=== PATIENT | male | born 1955 | race African-American/Black ===

== ENCOUNTER 2021-03-12 20:14 | Inpatient (IN) | payer OTHER, SELFPAY ==
--- NOTE | ~2021-03-12 | CT_ITS ---
EXAMINATION: CTA chest PE protocol DATE: 03/13/2021 02:21 INDICATION: Shortness of breath, chest pain, cough, fever TECHNIQUE: Computed tomography angiography (CTA) of the chest was performed with 100 mL Omnipaque-350 intravenous contrast timed to evaluate the pulmonary arteries. Coronal maximum intensity projection 3D-reconstructions were created by the technologist. Automated exposure control and iterative reconst ruction technique were employed. Exam dose: 983.16 mGy-cm total exam DLP. COMPARISON: 03/12/2021 AP and lateral chest FINDINGS: There is diagnostic contrast enhancement of the pulmonary arteries and no evidence of centr al pulmonary embolism. Evaluation of peripheral pulmonary arteries is limited by motion. Thoracic aortic aneurysm, ascending aorta measuring up to 4.7 cm approximate diameter aortic arch hesham suring up to 3.5 cm, descending thoracic aorta approximately 3.2 cm. Cardiomegaly. No pericardial effusion. No pleural effusion. Patchy groundglass infiltrates are scattered in the right upper lobe, lingula, middle lobe and partic ularly both lower lobes, likely due to Covid pneumonia. Mild hilar and mediastinal lymph node prominence, likely reactive. Normal adrenal glands. 1.6 cm upper pole probable right renal cyst. No suspicious osteolytic or osteoblastic lesions. IMPRESSION: Extensive patchy bilateral groundglass pulmonary infiltrates, likely due to Covid pneumo marianne No central pulmonary embolism is evident; peripheral pulmonary arteries are not well demonstrated due to motion Cardiomegaly Reviewed, dictated and finalized at [facility] Reviewed, dictated and finalized at [facility]. IMPRESSION: Extensive patchy bilateral groundglass pulmonary infiltrates, like ly due to Covid pneumonia No central pulmonary embolism is evident; peripheral pulmonary arteries are not well demonstrated due to motion Cardiomegaly
--- NOTE | ~2021-03-12 | XR_ITS ---
EXAMINATION: XR chest 2V DATE: 03/12/2021 21:09 INDICATION: Shortness of breath and cough TECHNIQUE: frontal and lateral views of the chest were obtained. COMPARISON: None FINDINGS: Opacities in the bilateral mid and lower lung zones. No pleural effusion or pneumothorax. Borderline heart size accounting for AP technique. Mild to moderate thoracic spondylosis. IMPRESSION: 1. Opacities in the bilateral mid and lower lung zones which could represent pneumonia or pulmonary e wendy. 2. Borderline heart size. Reviewed, dictated and finalized at [facility]. IMPRESSION: 1. Opacities in the bilateral mid and lower lung zones which could represent pn eumonia or pulmonary edema. 2. Borderline heart size.
--- NOTE | 2021-03-12 20:19 | ECG_ITS ---
Measurements Intervals [place] Rate: 68 P: -27 VA: 168 QRS: -32 QRSD: 104 T: -17 QT: 402 QTc: 428 Interpretive Statements SINUS RHYTHM LEFT AXIS DEVIATION INCOMPLETE RIGHT BUNDLE BRANCH BLOCK BORDERLINE T WAVE ABNORMALITY- ANTEROLAT/INF LEADS BASELINE ARTIFACT- I, II, III, AVR, AVL, V1, V3-V6 BORDERLINE ECG Electronically Signed On 03-13-2021 5:48:56 CDT by Allan Vincent D.O.
[2021-03-12 20:50] VITALS: BP 129/79; PULSE 69; RESP 14; TEMP 38.4; O2SAT 91
[2021-03-12 21:55] VITALS: BP 148/77; PULSE 69; RESP 24; TEMP 38.3; O2SAT 92
[2021-03-12 22:51] LABS: Basophils Percent Auto 0.3 % (0.2-1.2); Eosinophils Percent Auto 0.1 % (0-4.4); Hematocrit 36.5 % (42.0-52.0); Hemoglobin 12.1 g/dL (14.0-18.0); Immature Granulocyte Absolute 0.07 K/mm3 (0.00-0.031); Immature Granulocyte Percent A 0.9 % (0-0.5); Lymphocytes Absolute Auto 1.63 K/mm3 (0.9-3.2); Lymphocytes Percent Auto 21.7 % (18.3-44.2); Mean Corpuscular HGB Conc 33.2 g/dl (32-36); Mean Corpuscular Hemoglobin 28.5 pg (26-34); Mean Corpuscular Volume 86.1 fl (80-100); Mean Platelet Volume 9.7 fl (7.4-10.4); Monocytes Absolute Auto 0.7 K/mm3 (0.1-0.6); Monocytes Percent Auto 9.3 % (2.6-8.5); Neutrophils Absolute Auto 5.1 K/mm3 (1.3-6.7); Neutrophils Percent Auto 67.7 % (45.5-73.1); Nucleated Red Blood Cells Perc 0.3 % (0.0-0.2); Platelet Count Result 351 k/mm3 (150-375); Red Blood Count 4.24 M/mm3 (4.6-6.20); White Blood Count 7.5 K/mm3 (4.5-10.0)
[2021-03-12 23:00] LABS: Prothrombin Time 13.5 Seconds (11.1-14.7)
[2021-03-12 23:01] LABS: Partial Thromboplastin Time 30.3 SECONDS (22.3-36.8)
[2021-03-12 23:03] LABS: D Dimer 1.64 ug/mL (<0.48)
[2021-03-12 23:07] LABS: Anion Gap 8 mmol/L (8-16); Blood Urea Nitrogen 12 mg/dL (9-20); Calcium 9.2 mg/dL (8.4-10.2); Carbon Dioxide 27 mmol/L (22-30); Chloride 102 mmol/L (98-107); Estimated CRCL calculation 100 ml/min; Estimated Glomerular Filt Rate > 60; Glucose 104 mg/dL (65-110); Potassium 3.5 mmol/L (3.4-5.0); Sodium 137 mmol/L (137-145)
[2021-03-12 23:08] VITALS: BP 142/79; PULSE 71; RESP 36; O2SAT 95
[2021-03-12 23:09] LABS: Alanine Aminotransferase 70 U/L (4-50); Albumin Level 3.8 g/dL (3.5-5.1); Alkaline Phosphatase 42 U/L (38-126); Aspartate Amino Transferase 64 U/L (17-59); CRP 6.9 mg/dL (<1.0); Lactate Dehydrogenase 857 U/L (313-618)
--- NOTE | 2021-03-12 23:51 | ED.SOB ---
HPI - SOB/Dyspnea General Chief Complaint: Shortness of Breath/Dyspnea Stated Complaint: pneumonia- want chest xray Time Seen by Provider: 03/12/21 23:15 Source: patient and RN notes reviewed Mode of arrival: ambulatory Limitations: no limitations History of Present Illness HPI Narrative: This is a 65 year old male who presents for evaluation of possible pneumonia. He presented with his with symptoms of cough, weakness and shortness of breath. He states he has had symptoms for 1 week. He has shortness of breath with minimal exertion. His cough is nonproductive. He denies chest pain, nausea, vomiting, abdominal pain or diarrhea. He also reports mild headache. He had fever of 101.1 F in triage. Related Data Home Medications Medication Instructions Recorded Confirmed latanoprost 0.005 % eye drops 1 drop EACH EYE DAILY 04/29/20 03/13/21 timolol maleate 0.5 % once daily 1 drop EACH EYE DAILY ml 04/29/20 03/13/21 eye drops Allergies Allergy/AdvReac Type Severity Reaction Status Date / Time No Known Allergies Allergy Verified 03/12/21 22:00 Review of Systems Review of Systems: All systems reviewed & are unremarkable except as noted in HPI and below PMFSH Past Medical History Medical History (Updated 03/13/21 @ 07:42 by Shikha Young MD) Elevated PSA Glaucoma Vasectomy planned Surgical History Surgical History (Updated 03/12/21 @ 23:52 by Shikha Young MD) H/O prostatectomy Family History Family History Mother Cancer Father Cancer Social History Social History (Updated 04/29/20 @ 08:42 by Jade Kuo) Smoking status: Never smoker Second hand tobacco smoke exposure: No Alcohol intake: never Substance use: never Gender identity (if verbalized by the patient): Male Spiritual care concerns: No Exam Const: General: alert and ill appearing; No diaphoretic Orientation/consciousness: patient oriented x3 Other: mild distress Eyes: EOM: EOMs intact bilaterally Resp: Effort & Inspection: not labored, no retractions and tachypneic Auscultation: crackles bilateral and no wheezes Cardio: Rate: regular rate Rhythm: regular rhythm Heart sounds: Murmur heart sound present GI: GI Palp: Yes Soft to palpation, No Tenderness to palpation present (GI) and No Guarding due to palpation present (GI) Auscultation: normal bowel sounds Back/Spine/Pelvis: Back: no CVA tenderness Skin: General skin exam: normal color Rashes: no rashes Neuro: General: patient oriented x3, moves all extremities and CN's II-XI intact bilaterally Psych: Mental Status: mental status grossly normal Affect: normal affect Course Reevaluation(s) Reevaluation #1: PAtient presents with suspected covid pneumonia. He has been started on antibiotics. He was placed on 2 L NC due to hypoxia on abg. No respiratory distress. Date: 03/13/21 Time: 02:00 Consultations Consultation #1: I discussed case with Dr. Tan. He accepts patient to medical floor for likely covid pneumonia. No further recommendations Date: 03/13/21 Time: 03:10 Vital Signs Vital signs: Vital Signs Temperature 101.1 F H 03/12/21 20:50 Pulse Rate 69 03/12/21 20:50 Respiratory Rate 14 03/12/21 20:50 Blood Pressure 129/79 03/12/21 20:50 Pulse Oximetry 91 03/12/21 20:50 Temperature 99.2 F 03/13/21 05:30 Pulse Rate 68 03/13/21 05:30 Respiratory Rate 22 H 03/13/21 05:30 Blood Pressure 120/73 03/13/21 05:30 Pulse Oximetry 94 03/13/21 05:34 MDM - SOB/Dyspnea Lab Data Attestation: I reviewed the patient's lab results. Result diagrams: 03/12/21 22:43 03/12/21 22:43 Labs: Lab Results 03/12/21 03/12/21 03/12/21 Range/Units 22:43 22:43 22:43 WBC 7.5 (4.5-10.0) K/mm3 RBC 4.24 L (4.6-6.20) M/mm3 Hgb 12.1 L (14.0-18.0) g/dL Hct 36.5 L (42.0-52.0) % MCV 86.1 (80-100)
[2021-03-12] MEDS: ACETAMINOPHEN 500 MG TABLET 1000 MG PO (23:55)
[2021-03-13] VITALS (11 sets, daily range): BP systolic 118–141; BP diastolic 71–79; PULSE 56–73; RESP 18–32; TEMP 36.5–37.6; O2SAT 92–98; BMI 35.1
[2021-03-13] MEDS: SODIUM CHLORIDE 0.9% IV 1,000 ML 999 ML IV CONT (00:13)
[2021-03-13 00:21] LABS: Base Excess ABG -0.9 mEq/l (+/-2.0); Carboxyhemoglobin 0.7 % THb (0-2.0); Fractional Inspired Oxygen 21 %; HCO3 ABG 21.4 mEq/l (22.0-26.0); Methemoglobin ABG 0.2 %THb (0-1.5); Oxygen Content ABG 15.5 %vol (16.0-22.0); Oxygen Saturation ABG 91.6 % (95.0-100.0); Oxyhemoglobin 87.7 % THb (90.0-100.0); PCO2 ABG 28.7 mmHg (35.0-45.0); PO2 ABG 55.4 mmHg (80.0-100.0); PO2 FiO2 Ratio Arterial Blood 2.64 %; Reduced Hemoglobin 11.4 %THb (0-5.0); Total Hemoglobin 12.6 g/dL (12.0-18.0)
[2021-03-13 00:23] LABS: Modified Allen's Test Pass; Site Drawn RIGHT RADIAL
[2021-03-13] MEDS: DEXAMETHASONE 2 MG TABLET 6 MG PO ×2 (00:50→09:40)
--- NOTE | 2021-03-13 00:50 | PC.NURSE ---
pt placed on 2L of o2 via nasal cannula per respiratory
[2021-03-13] MEDS: ALBUTEROL SULFATE (*SP) AEROSOL 1 PUFF 4 PUFF INHALATION (03:09)
--- NOTE | 2021-03-13 05:35 | ADMGEN ---
This patient, Daquan Green, was admitted to [facility] Surg Room 331-02. Patient/family oriented to hospital policies and general routines including ID bracelet, bed and alarms, visiting hours, pain management, procedures, bathroom and other care routines, personal items, smoking policy, room service/diet, and visiting hours. Information on how to activate the Rapid Response Team has been discussed. Patient/Family are encouraged to report perceived risks to care and to ask questions if they do not understand what they are told or what they should do.
--- NOTE | 2021-03-13 14:21 | PM.IMHP ---
H&P: HPI History of Present Illness Date/Time: 03/13/21 14:21 65-year-old male who denies any past medical history other than glaucoma and prostate ca, states that he is very well and does not see doctors presents to the emergency room with his both with acute hypoxemic respiratory failure requiring admission. Initial laboratory findings revealed normal wbc's elevated inflammatory markers LDH is 857, CRP 6.9, ferritin 795. Renal function is stable creatinine 1.0 BUN 12 electrolytes within normal limits. CT angio of chest reveals extensive patchy bilateral ground-glass pulmonary infiltrates highly suspicious for coronavirus-19. Both Daquan and his declined medical therapy due to risks associated with possible side effects. He is excepting dexamethasone, Azithro, and oxygen therapy only. After ongoing discussion with patient he and his have agreed to accept all medical therapy made available to them here in our hospital. Chief Complaint: SOB Review of Systems Review of Systems: All systems reviewed & are unremarkable except as noted in HPI and below PMFSH Past Medical History Medical History (Updated 03/13/21 @ 19:01 by Jerri Heath MD) Elevated PSA Glaucoma Vasectomy planned Surgical History Surgical History (Updated 03/12/21 @ 23:52 by Shikha Young MD) H/O prostatectomy Family History Family History Mother Cancer Father Cancer Social History Social History (Updated 04/29/20 @ 08:42 by Jade Kuo) Smoking status: Never smoker Second hand tobacco smoke exposure: No Alcohol intake: never Substance use: never Gender identity (if verbalized by the patient): Male Spiritual care concerns: No Meds Home Medications and Allergies Home Medications Medication Instructions Recorded Confirmed Type latanoprost 0.005 % eye drops 1 drop EACH EYE DAILY 04/29/20 03/13/21 History timolol maleate 0.5 % once daily 1 drop EACH EYE DAILY ml 04/29/20 03/13/21 History eye drops Allergies Allergy/AdvReac Type Severity Reaction Status Date / Time No Known Allergies Allergy Verified 03/12/21 22:00 Vital Signs Vital Signs - 24 hr 03/12/21 20:50 03/12/21 21:55 03/12/21 23:08 Temperature 101.1 F H 101 F H Pulse Rate 69 69 71 Respiratory Rate 14 24 H 36 H Blood Pressure 129/79 148/77 H 142/79 H Pulse Oximetry 91 92 95 03/13/21 00:05 03/13/21 00:49 03/13/21 02:59 Temperature Pulse Rate 73 71 67 Respiratory Rate 26 H 28 H 32 H Blood Pressure 138/71 141/77 H 129/79 Pulse Oximetry 92 98 95 03/13/21 03:10 03/13/21 05:28 03/13/21 05:30 Temperature 99.2 F Pulse Rate 66 67 68 Respiratory Rate 20 22 H 22 H Blood Pressure 118/77 120/73 Pulse Oximetry 98 94 03/13/21 05:34 03/13/21 08:00 Temperature Pulse Rate 68 Respiratory Rate 22 H Blood Pressure Pulse Oximetry 94 94 Exam Const: General: comfortable and no acute distress HENMT: General nose exam: Normal nares present Mouth: Yes moist mucous membranes Eyes: General: appearance normal, both eyes and all related structures Sclera: sclerae normal EOM: EOMs intact bilaterally Neck: Neck: supple and no JVD Resp: Auscultation: crackles and diminished lung sounds Cardio: Rate: tachycardic Rhythm: regular rhythm GI: Inspection: non-distended GI Palp: Yes Soft to palpation and No Guarding due to palpation present (GI) Auscultation: normal bowel sounds Skin: General skin exam: normal color and no rashes or lesions noted Neuro: Cognition (Neuro): normal cognition Speech: normal speech Motor exam (neuro): 5/5 motor strength present throughout and Normal motor muscle tone present throughout Extrem: General: normal to inspection, normal exam except as noted and no edema Psych: Mental Status: mental status grossly normal Affect: normal affect H&P: Results Labs Labs: Short CBC 03/12/21 Range/Units 22:43 WBC
[2021-03-13 20:10] LABS: SARS-CoV-2 RNA PCR Positive
[2021-03-13] MEDS: REMDESIVIR 200 MG/NS 250 ML 200 MG/250 ML BAG 250 MG IVPB (22:30)
[2021-03-13] MEDS: ASCORBIC ACID 500 MG TABLET 1000 MG PO (22:33)
[2021-03-14] VITALS (7 sets, daily range): BP systolic 113–140; BP diastolic 67–82; PULSE 56–79; RESP 18–24; TEMP 36.3–37.7; O2SAT 91–96
[2021-03-14] MEDS: LATANOPROST 0.005% OP SOLN 2.5 ML BTL 1 DROP EACH EYE ×2 (00:09→20:48)
[2021-03-14 06:27] LABS: Basophils Percent Auto 0.1 % (0.2-1.2); Hematocrit 37.3 % (42.0-52.0); Hemoglobin 12.4 g/dL (14.0-18.0); Immature Granulocyte Absolute 0.11 K/mm3 (0.00-0.031); Lymphocytes Absolute Auto 1.44 K/mm3 (0.9-3.2); Lymphocytes Percent Auto 13.6 % (18.3-44.2); Mean Corpuscular HGB Conc 33.2 g/dl (32-36); Mean Corpuscular Volume 87.1 fl (80-100); Mean Platelet Volume 10.5 fl (7.4-10.4); Monocytes Absolute Auto 0.8 K/mm3 (0.1-0.6); Monocytes Percent Auto 7.7 % (2.6-8.5); Neutrophils Absolute Auto 8.2 K/mm3 (1.3-6.7); Neutrophils Percent Auto 77.6 % (45.5-73.1); Platelet Count Result 414 k/mm3 (150-375); Red Blood Count 4.28 M/mm3 (4.6-6.20); Red Cell Distribution Width 14.1 % (11.5-14.5); White Blood Count 10.6 K/mm3 (4.5-10.0)
[2021-03-14 06:43] LABS: INR 1.1
[2021-03-14 06:45] LABS: D Dimer 1.93 ug/mL (<0.48)
[2021-03-14] MEDS: CHOLECALCIFEROL 1,000 UNITS TABLET 1000 UNITS PO (09:05)
[2021-03-14] MEDS: ZINC SULFATE 220 MG CAPSULE PO (09:05)
[2021-03-14] MEDS: ENOXAPARIN 40 MG/0.4 ML SYRINGE SUB-Q (09:05)
[2021-03-14] MEDS: ASCORBIC ACID 500 MG TABLET 1000 MG PO ×2 (09:05→20:43)
[2021-03-14] MEDS: TIMOLOL MALEATE 0.5% OP SOLN 5 ML BOTTLE 1 DROP EACH EYE (09:08)
[2021-03-14 09:38] LABS: Alanine Aminotransferase 58 U/L (4-50); Albumin Level 3.3 g/dL (3.5-5.1); Alkaline Phosphatase 38 U/L (38-126); Anion Gap 8 mmol/L (8-16); Aspartate Amino Transferase 40 U/L (17-59); Bilirubin,Total 0.5 mg/dL (0.2-1.3); Blood Urea Nitrogen 12 mg/dL (9-20); CRP 5.7 mg/dL (<1.0); Calcium 9.2 mg/dL (8.4-10.2); Carbon Dioxide 25 mmol/L (22-30); Chloride 108 mmol/L (98-107); Estimated CRCL calculation 120 ml/min; Estimated Glomerular Filt Rate > 60; Glucose 115 mg/dL (65-110); Magnesium 2.1 mg/dL (1.6-2.3); Potassium 4.5 mmol/L (3.4-5.0); Sodium 141 mmol/L (137-145)
[2021-03-14 09:47] LABS: Hemoglobin A1C 6.6 % (<5.7)
--- NOTE | 2021-03-14 11:51 | PM.IMPN ---
Progress Note: A&P Assessment and Plan (1) COVID-19 determined by clinical diagnostic criteria: Code(s): U07.1 - COVID-19 Status: Acute Assessment and Plan: trend inflammatory markers PPI while on steroids supplemental O2 dexamethasone Azithromycin Remdesivir VTEP LMWH and SCDs (2) Low vitamin D level: Code(s): R79.89 - Other specified abnormal findings of blood chemistry Status: Acute Assessment and Plan: Vit D / Vti C / Zn (3) Hyperglycemia: Code(s): R73.9 - Hyperglycemia, unspecified Status: Acute Assessment and Plan: hgA1c in am Additional Plan VTEP PT/OT 03/13/21 admitted for covid, protocol therapies initiated 03/14/21 cont on benign course, 2L NC, tolerating medical therapy, diet, PT/OT ordered. OOB to chair as desired Subjective Date/time seen: 03/14/21 11:51 Patient doing okay this afternoon remains on 2-3 L of nasal cannula minimal cough tolerating p.o. feels that he is beginning to improve Exam Narrative: GEN: NAD, AAOx3, cooperative HEENT: NCAT, MMM, EOMI Neck: no JVD Heart: S1S2 RRR Lungs: no use of accessory muscles reduced air movement Abd: soft, NT, ND, bowel sounds normoactive Ext: moves all, no cyanosis, no clubbing, no edema Neuro: AAOx3 CN intact no focal motor deficits Psych: mood and affect congruent Objective Data Vital Signs Vital Signs: Vital Signs - 24 hr 03/13/21 14:00 03/13/21 20:00 03/13/21 20:45 Temperature 97.7 F 99.7 F H Pulse Rate 68 70 56 L Respiratory Rate 18 20 18 Blood Pressure 140/76 133/78 Pulse Oximetry 96 93 92 03/14/21 00:00 03/14/21 03:50 03/14/21 08:26 Temperature 98.7 F 98.1 F 97.5 F L Pulse Rate 67 56 L 63 Respiratory Rate 20 18 24 H Blood Pressure 139/82 128/77 113/77 Pulse Oximetry 94 92 96 Intake/Output Intake/Output: Intake & Output 03/11/21 03/12/21 03/13/21 03/14/21 23:59 23:59 23:59 23:59 Intake Total 1660 900 Output Total 600 Balance 1660 300 Meds/Results Medications: Active Medications Generic Name Dose Route Start Last Admin Trade Name Freq PRN Reason Stop Dose Admin Albuterol 4 puff 03/12/21 23:43 03/13/21 03:09 Albuterol Sulfate (*Sp) Aerosol 1 Puff INHALATION 4 puff Q6HRT PRN Administration Shortness Of Breath Ascorbic Acid 1,000 mg 03/13/21 21:00 03/14/21 09:05 Ascorbic Acid 500 Mg Tablet PO 1,000 mg Q12HR JANNETTE Administration Dexamethasone 6 mg 03/13/21 08:00 03/13/21 09:40 Dexamethasone 2 Mg Tablet PO 03/22/21 08:01 6 mg DAILY@0800 JANNETTE Administration Enoxaparin Sodium 40 mg 03/14/21 09:00 03/14/21 09:05 Enoxaparin 40 Mg/0.4 Ml Syringe SUB-Q 40 mg DAILY JANNETTE Administration Ceftriaxone Sodium/Dextrose 1 gm in 50 mls @ 100 mls/hr 03/14/21 02:00 03/14/21 02:34 Rocephin 1 Gm/D5w 50 Ml IVPB 100 mls/hr Q24H JANNETTE Administration Azithromycin 500 mg in 250 mls @ 250 mls/hr 03/14/21 02:30 03/14/21 03:26 Zithromax IVPB 250 mls/hr Q24H JANNETTE Administration Remdesivir 100 mg in 250 mls @ 250 mls/hr 03/14/21 22:00 IVPB 03/17/21 22:01 Q24H JANNETTE Latanoprost 1 drop 03/13/21 21:00 03/14/21 00:09 Latanoprost 0.005% Op Soln 2.5 Ml Btl EACH EYE 1 drop HS JANNETTE Administration Melatonin 3 mg 03/13/21 20:50 Melatonin 3 Mg Tablet PO HS PRN Insomnia Pantoprazole Sodium 40 mg 03/15/21 09:00 Pantoprazole Sodium Iv 40 Mg Vial IV PUSH QAM JANNETTE Timolol Maleate 1 drop 03/14/21 09:00 03/14/21 09:08 Timolol Maleate 0.5% Op Soln 5 Ml Bottle EACH EYE 04/13/21 09:01 1 drop DAILY JANNETTE Administration Vitamin D 1,000 units 03/14/21 09:00 03/14/21 09:05 Cholecalciferol 1,000 Units Tablet PO 1,000 units DAILY JANNETTE Administration Zinc Sulfate 220 mg 03/14/21 09:00 03/14/21 09:05 Zinc Sulfate 220 Mg Capsule PO 220 mg QAM JANNETTE Administration Radiology Results: ITS Impressions Chest X-Ray 03/12/21 21:18 IMPRESSION: 1.
[2021-03-14] MEDS: DEXAMETHASONE 2 MG TABLET 6 MG PO (16:18)
[2021-03-14] MEDS: REMDESIVIR 100 MG/NS 250 ML 100 MG/250 ML BAG 250 MG IVPB (20:44)
[2021-03-15] VITALS: BP 118/72; PULSE 65; RESP 18; TEMP 36.6; O2SAT 91
[2021-03-15 04:00] VITALS: BP 127/78; PULSE 64; RESP 20; TEMP 37.3; O2SAT 95
[2021-03-15 08:00] VITALS: BP 126/72; PULSE 60; RESP 18; TEMP 37.2; O2SAT 92
[2021-03-15 08:29] LABS: Alanine Aminotransferase 48 U/L (4-50); Estimated CRCL calculation 120 ml/min; Estimated Glomerular Filt Rate > 60
[2021-03-15] MEDS: ZINC SULFATE 220 MG CAPSULE PO (08:41)
[2021-03-15] MEDS: DEXAMETHASONE 2 MG TABLET 6 MG PO (08:41)
[2021-03-15] MEDS: CHOLECALCIFEROL 1,000 UNITS TABLET 1000 UNITS PO (08:41)
[2021-03-15] MEDS: ASCORBIC ACID 500 MG TABLET 1000 MG PO ×2 (08:41→21:28)
[2021-03-15] MEDS: TIMOLOL MALEATE 0.5% OP SOLN 5 ML BOTTLE 1 DROP EACH EYE (08:42)
[2021-03-15] MEDS: PANTOPRAZOLE SODIUM IV 40 MG VIAL IV PUSH (08:42)
[2021-03-15] MEDS: ENOXAPARIN 40 MG/0.4 ML SYRINGE SUB-Q (08:42)
[2021-03-15 08:56] LABS: INR 1.1; Prothrombin Time 13.7 Seconds (11.1-14.7)
--- NOTE | 2021-03-15 10:09 | PM.IMPN ---
Progress Note: A&P Assessment and Plan (1) COVID-19 determined by clinical diagnostic criteria: Code(s): U07.1 - COVID-19 Status: Acute Assessment and Plan: trend inflammatory markers PPI while on steroids supplemental O2 dexamethasone Azithromycin Remdesivir VTEP LMWH and SCDs (2) Low vitamin D level: Code(s): R79.89 - Other specified abnormal findings of blood chemistry Status: Acute Assessment and Plan: Vit D / Vti C / Zn (3) Hyperglycemia: Code(s): R73.9 - Hyperglycemia, unspecified Status: Acute Assessment and Plan: hgA1c in am Additional Plan VTEP PT/OT 03/13/21 admitted for covid, protocol therapies initiated 03/14/21 cont on benign course, 2L NC, tolerating medical therapy, diet, PT/OT ordered. OOB to chair as desired 03/15/21 now on RA and able to maintain sats at 92-94 w ambulation, elevated temp overnight, receiving Remdesivir 3/5 and Dexamethasone. (Inflammatory markers appear to be uptrending. Will monitor closely for decompensation . Subjective Date/time seen: 03/15/21 10:09 pt doing very well on RA now no complaints Exam Narrative: GEN: NAD, AAOx3, cooperative HEENT: NCAT, MMM, EOMI Neck: no JVD Heart: S1S2 RRR Lungs: no use of accessory muscles reduced air movement Abd: soft, NT, ND, bowel sounds normoactive Ext: moves all, no cyanosis, no clubbing, no edema Neuro: AAOx3 CN intact no focal motor deficits Psych: mood and affect congruent Objective Data Vital Signs Vital Signs: Vital Signs - 24 hr 03/14/21 12:00 03/14/21 16:00 03/14/21 20:00 Temperature 97.3 F L 99.7 F H 100 F H Pulse Rate 61 79 65 Respiratory Rate 20 18 18 Blood Pressure 138/79 128/79 140/67 Pulse Oximetry 96 92 91 03/15/21 00:00 03/15/21 04:00 03/15/21 08:00 Temperature 98 F 99.1 F 98.9 F Pulse Rate 65 64 60 Respiratory Rate 18 20 18 Blood Pressure 118/72 127/78 126/72 Pulse Oximetry 91 95 92 Intake/Output Intake/Output: Intake & Output 03/12/21 03/13/21 03/14/21 03/15/21 23:59 23:59 23:59 23:59 Intake Total 1660 2720 600 Output Total 600 600 Balance 1660 2120 0 Meds/Results Medications: Active Medications Generic Name Dose Route Start Last Admin Trade Name Freq PRN Reason Stop Dose Admin Albuterol 4 puff 03/12/21 23:43 03/13/21 03:09 Albuterol Sulfate (*Sp) Aerosol 1 Puff INHALATION 4 puff Q6HRT PRN Administration Shortness Of Breath Ascorbic Acid 1,000 mg 03/13/21 21:00 03/15/21 08:41 Ascorbic Acid 500 Mg Tablet PO 1,000 mg Q12HR JANNETTE Administration Dexamethasone 6 mg 03/14/21 15:35 03/15/21 08:41 Dexamethasone 2 Mg Tablet PO 03/22/21 08:01 6 mg DAILY@0800 JANNETTE Administration Enoxaparin Sodium 40 mg 03/14/21 09:00 03/15/21 08:42 Enoxaparin 40 Mg/0.4 Ml Syringe SUB-Q 40 mg DAILY JANNETTE Administration Ceftriaxone Sodium/Dextrose 1 gm in 50 mls @ 100 mls/hr 03/14/21 02:00 03/15/21 02:35 Rocephin 1 Gm/D5w 50 Ml IVPB Infused Q24H JANNETTE Infusion Azithromycin 500 mg in 250 mls @ 250 mls/hr 03/14/21 02:30 03/15/21 03:05 Zithromax IVPB Infused Q24H JANNETTE Infusion Remdesivir 100 mg in 250 mls @ 250 mls/hr 03/14/21 22:00 03/14/21 21:45 IVPB 03/17/21 22:01 Infused Q24H JANNETTE Infusion Latanoprost 1 drop 03/13/21 21:00 03/14/21 20:48 Latanoprost 0.005% Op Soln 2.5 Ml Btl EACH EYE 1 drop HS JANNETTE Administration Melatonin 3 mg 03/13/21 20:50 Melatonin 3 Mg Tablet PO HS PRN Insomnia Pantoprazole Sodium 40 mg 03/15/21 09:00 03/15/21 08:42 Pantoprazole Sodium Iv 40 Mg Vial IV PUSH 40 mg QAM JANNETTE Administration Timolol Maleate 1 drop 03/14/21 09:00 03/15/21 08:42 Timolol Maleate 0.5% Op Soln 5 Ml Bottle EACH EYE 04/13/21 09:01 1 drop DAILY JANNETTE Administration Vitamin D 1,000 units 03/14/21 09:00 03/15/21 08:41 Cholecalciferol 1,000 Units Tablet PO 1,000 units DAILY JANNETTE Administration Zinc Sulfat
[2021-03-15 10:39] LABS: Basophils Percent Auto 0.2 % (0.2-1.2); Hematocrit 39.6 % (42.0-52.0); Hemoglobin 12.9 g/dL (14.0-18.0); Immature Granulocyte Absolute 0.24 K/mm3 (0.00-0.031); Lymphocytes Absolute Auto 1.63 K/mm3 (0.9-3.2); Lymphocytes Percent Auto 13.8 % (18.3-44.2); Mean Corpuscular HGB Conc 32.6 g/dl (32-36); Mean Corpuscular Hemoglobin 29.1 pg (26-34); Mean Corpuscular Volume 89.4 fl (80-100); Mean Platelet Volume 10.5 fl (7.4-10.4); Monocytes Absolute Auto 0.6 K/mm3 (0.1-0.6); Monocytes Percent Auto 5.4 % (2.6-8.5); Neutrophils Absolute Auto 9.3 K/mm3 (1.3-6.7); Neutrophils Percent Auto 78.6 % (45.5-73.1); Platelet Count Result 503 k/mm3 (150-375); Red Blood Count 4.43 M/mm3 (4.6-6.20); Red Cell Distribution Width 14.1 % (11.5-14.5); White Blood Count 11.8 K/mm3 (4.5-10.0)
[2021-03-15 10:48] LABS: Alanine Aminotransferase 50 U/L (4-50); Albumin Level 3.3 g/dL (3.5-5.1); Alkaline Phosphatase 35 U/L (38-126); Anion Gap 6 mmol/L (8-16); Aspartate Amino Transferase 29 U/L (17-59); Bilirubin,Total 0.5 mg/dL (0.2-1.3); Blood Urea Nitrogen 12 mg/dL (9-20); CRP 3.4 mg/dL (<1.0); Calcium 9.2 mg/dL (8.4-10.2); Carbon Dioxide 25 mmol/L (22-30); Chloride 109 mmol/L (98-107); Estimated CRCL calculation 120 ml/min; Estimated Glomerular Filt Rate > 60; Glucose 104 mg/dL (65-110); Potassium 4.5 mmol/L (3.4-5.0); Sodium 140 mmol/L (137-145)
[2021-03-15 12:00] VITALS: BP 127/81; PULSE 65; RESP 18; TEMP 36.3; O2SAT 93
[2021-03-15 16:00] VITALS: BP 129/75; PULSE 65; RESP 18; TEMP 36.3; O2SAT 93
[2021-03-15 20:00] VITALS: BP 134/72; PULSE 71; RESP 18; TEMP 36.6; O2SAT 98
[2021-03-15] MEDS: LATANOPROST 0.005% OP SOLN 2.5 ML BTL 1 DROP EACH EYE (21:28)
[2021-03-15] MEDS: REMDESIVIR 100 MG/NS 250 ML 100 MG/250 ML BAG 250 MG IVPB (21:28)
[2021-03-16] VITALS (7 sets, daily range): BP systolic 101–134; BP diastolic 63–91; PULSE 52–62; RESP 18–20; TEMP 36.1–37; O2SAT 94–97
[2021-03-16 06:49] LABS: Prothrombin Time 13.3 Seconds (11.1-14.7)
--- NOTE | 2021-03-16 07:40 | PM.IMPN ---
Progress Note: A&P Assessment and Plan (1) COVID-19 determined by clinical diagnostic criteria: Code(s): U07.1 - COVID-19 Status: Acute Assessment and Plan: trend inflammatory markers PPI while on steroids supplemental O2 dexamethasone Azithromycin Remdesivir VTEP LMWH and SCDs (2) Low vitamin D level: Code(s): R79.89 - Other specified abnormal findings of blood chemistry Status: Acute Assessment and Plan: Vit D / Vti C / Zn (3) Hyperglycemia: Code(s): R73.9 - Hyperglycemia, unspecified Status: Acute Assessment and Plan: hgA1c in am (4) Diabetes mellitus: Code(s): E11.9 - Type 2 diabetes mellitus without complications Status: Acute Additional Plan VTEP PT/OT 03/13/21 admitted for covid, protocol therapies initiated 03/14/21 cont on benign course, 2L NC, tolerating medical therapy, diet, PT/OT ordered. OOB to chair as desired 03/15/21 now on RA and able to maintain sats at 92-94 w ambulation, elevated temp overnight, receiving Remdesivir 3/5 and Dexamethasone. (Inflammatory markers appear to be uptrending. Will monitor closely for decompensation . 03/16/21 anticipate discharge tomorrow after last dose of remdesivir. O2 walk test prior to dc We have discussed his new dx of diabetes and lifestyle modifications w close follow up (interestingly no hyperglycemia despite steroids. I will not start treatement and instead have him f/u for repeat testing in 3 months) Subjective Date/time seen: 03/16/21 07:40 doing very well has dramatically improved. He agrees to receive his last dose of Remdesivir tomorrow and then will go home. His remains in ICU. pt advised to quarantine and to cont to wash hands and 6 ft distancing as he and his family could contract COVID-19 again. Exam Narrative: GEN: NAD, AAOx3, cooperative now on RA HEENT: NCAT, MMM, EOMI Neck: no JVD Lungs: no use of accessory muscles reduced air movement Ext: moves all, no cyanosis, no clubbing, no edema Neuro: AAOx3 CN intact no focal motor deficits Psych: mood and affect congruent Objective Data Vital Signs Vital Signs: Vital Signs - 24 hr 03/15/21 08:00 03/15/21 12:00 03/15/21 16:00 Temperature 98.9 F 97.4 F L 97.4 F L Pulse Rate 60 65 65 Respiratory Rate 18 18 18 Blood Pressure 126/72 127/81 129/75 Pulse Oximetry 92 93 93 03/15/21 20:00 03/16/21 00:00 03/16/21 04:00 Temperature 97.8 F 97.9 F 97.3 F L Pulse Rate 71 62 52 L Respiratory Rate 18 18 18 Blood Pressure 134/72 125/74 134/80 Pulse Oximetry 98 94 96 Intake/Output Intake/Output: Intake & Output 03/13/21 03/14/21 03/15/21 03/16/21 23:59 23:59 23:59 23:59 Intake Total 1660 2720 1930 200 Output Total 600 600 Balance 1660 2120 1330 200 Meds/Results Medications: Active Medications Generic Name Dose Route Start Last Admin Trade Name Freq PRN Reason Stop Dose Admin Albuterol 4 puff 03/12/21 23:43 03/13/21 03:09 Albuterol Sulfate (*Sp) Aerosol 1 Puff INHALATION 4 puff Q6HRT PRN Administration Shortness Of Breath Ascorbic Acid 1,000 mg 03/13/21 21:00 03/15/21 21:28 Ascorbic Acid 500 Mg Tablet PO 1,000 mg Q12HR JANNETTE Administration Dexamethasone 6 mg 03/14/21 15:35 03/15/21 08:41 Dexamethasone 2 Mg Tablet PO 03/22/21 08:01 6 mg DAILY@0800 JANNETTE Administration Enoxaparin Sodium 40 mg 03/14/21 09:00 03/15/21 08:42 Enoxaparin 40 Mg/0.4 Ml Syringe SUB-Q 40 mg DAILY JANNETTE Administration Ceftriaxone Sodium/Dextrose 1 gm in 50 mls @ 100 mls/hr 03/14/21 02:00 03/16/21 02:23 Rocephin 1 Gm/D5w 50 Ml IVPB 100 mls/hr Q24H JANNETTE Administration Azithromycin 500 mg in 250 mls @ 250 mls/hr 03/14/21 02:30 03/16/21 02:55 Zithromax IVPB 250 mls/hr Q24H JANNETTE Administration Remdesivir 100 mg in 250 mls @ 250 mls/hr 03/14/21 22:00 03/15/21 22:28 IVPB 03/17/21 22:01 Infused Q24H JANNETTE Infusion Latanoprost 1 drop 03/13/21 21:00
[2021-03-16] MEDS: CHOLECALCIFEROL 1,000 UNITS TABLET 1000 UNITS PO (08:18)
[2021-03-16] MEDS: ASCORBIC ACID 500 MG TABLET 1000 MG PO ×2 (08:18→22:33)
[2021-03-16] MEDS: ENOXAPARIN 40 MG/0.4 ML SYRINGE SUB-Q (08:18)
[2021-03-16] MEDS: ZINC SULFATE 220 MG CAPSULE PO (08:19)
[2021-03-16] MEDS: PANTOPRAZOLE SODIUM IV 40 MG VIAL IV PUSH (08:19)
[2021-03-16] MEDS: TIMOLOL MALEATE 0.5% OP SOLN 5 ML BOTTLE 1 DROP EACH EYE (08:19)
[2021-03-16] MEDS: DEXAMETHASONE 2 MG TABLET 6 MG PO (08:19)
[2021-03-16 08:44] LABS: Alanine Aminotransferase 43 U/L (4-50); Albumin Level 3.3 g/dL (3.5-5.1); Alkaline Phosphatase 32 U/L (38-126); Anion Gap 4 mmol/L (8-16); Aspartate Amino Transferase 27 U/L (17-59); Bilirubin,Total 0.3 mg/dL (0.2-1.3); Blood Urea Nitrogen 10 mg/dL (9-20); Calcium 8.9 mg/dL (8.4-10.2); Carbon Dioxide 24 mmol/L (22-30); Chloride 107 mmol/L (98-107); Estimated CRCL calculation 120 ml/min; Estimated Glomerular Filt Rate > 60; Glucose 107 mg/dL (65-110); Potassium 4.4 mmol/L (3.4-5.0); Sodium 135 mmol/L (137-145)
[2021-03-16 09:11] LABS: CRP 2.3 mg/dL (<1.0)
[2021-03-16] MEDS: REMDESIVIR 100 MG/NS 250 ML 100 MG/250 ML BAG 250 MG IVPB (22:33)
[2021-03-16] MEDS: LATANOPROST 0.005% OP SOLN 2.5 ML BTL 1 DROP EACH EYE (22:33)
[2021-03-17] VITALS (9 sets, daily range): BP systolic 108–138; BP diastolic 79–85; PULSE 51–75; RESP 16–18; TEMP 36.3–37.1; O2SAT 91–98
[2021-03-17 08:22] LABS: Prothrombin Time 13.2 Seconds (11.1-14.7)
[2021-03-17 08:24] LABS: D Dimer 1.34 ug/mL (<0.48)
[2021-03-17] MEDS: ZINC SULFATE 220 MG CAPSULE PO (08:36)
[2021-03-17] MEDS: ASCORBIC ACID 500 MG TABLET 1000 MG PO (08:36)
[2021-03-17] MEDS: CHOLECALCIFEROL 1,000 UNITS TABLET 1000 UNITS PO (08:37)
[2021-03-17] MEDS: DEXAMETHASONE 2 MG TABLET 6 MG PO (08:37)
[2021-03-17] MEDS: ENOXAPARIN 40 MG/0.4 ML SYRINGE SUB-Q (08:38)
[2021-03-17] MEDS: PANTOPRAZOLE SODIUM IV 40 MG VIAL IV PUSH (08:39)
[2021-03-17 08:40] LABS: Alanine Aminotransferase 51 U/L (4-50); Albumin Level 3.3 g/dL (3.5-5.1); Alkaline Phosphatase 33 U/L (38-126); Anion Gap 6 mmol/L (8-16); Aspartate Amino Transferase 31 U/L (17-59); Bilirubin,Total 0.3 mg/dL (0.2-1.3); Blood Urea Nitrogen 14 mg/dL (9-20); Carbon Dioxide 25 mmol/L (22-30); Chloride 106 mmol/L (98-107); Estimated CRCL calculation 108 ml/min; Estimated Glomerular Filt Rate > 60; Glucose 97 mg/dL (65-110); Potassium 4.7 mmol/L (3.4-5.0); Sodium 137 mmol/L (137-145)
[2021-03-17 09:16] LABS: CRP 1.7 mg/dL (<1.0)
[2021-03-17] MEDS: guaiFENesin 12 HR 600 MG TABCR PO (11:39)
--- NOTE | 2021-03-17 11:51 | HOMEO2EVAL ---
Evaluation was performed at [facility] Home Oxygen Evaluation RC: Home Oxygen (O2) Evaluation Start: 03/17/21 09:39 Freq: ONCE Status: Active Protocol: RPE Activity Type Activity Date Activity User E-Sign Co-Sign Detail Recorded Client Recorded Date Recorded By Document 03/17/21 11:35 KRM [id number] 03/17/21 11:51 KRM Document 03/17/21 11:37 KRM [id number] 03/17/21 11:51 KRM Document 03/17/21 11:38 KRM [email or web address] 03/17/21 11:51 KRM Document 03/17/21 11:40 KRM [email or web address] 03/17/21 11:51 KRM 03/17/21 03/17/21 03/17/21 11:35 11:37 11:38 Home O2 Evaluation Test Phase Resting Exercise Exercise Oxygen Delivery Room Air Room Air Room Air Pulse Oximetry (90-100 %) 95 94 94 Pulse Rate (60-100 beats/min) 60 74 74 Activity Tolerance Good Good Ambulation Distance (feet) Treatment Charges O2 Evaluation - Inpatient 03/17/21 11:40 Home O2 Evaluation Test Phase Exercise Oxygen Delivery Room Air Pulse Oximetry (90-100 %) 91 Pulse Rate (60-100 beats/min) 75 Activity Tolerance Good Ambulation Distance (feet) 100 Treatment Charges
--- NOTE | 2021-03-17 15:33 | PM.DS ---
DS: Admitting Diagnosis Admitting Diagnosis COVID-19 pneumonia DS: Discharge Diagnosis Discharge Diagnosis (1) Pneumonia due to COVID-19 virus: Code(s): U07.1 - COVID-19; J12.82 - Pneumonia due to coronavirus disease 2019 Status: Acute Assessment and Plan: Presented with shortness of breath. Tested positive for COVID-19 on 03/13/2021. He required up to 2 L supplemental O2 per nasal cannula. He received 5 days of IV remdesivir and dexamethasone. He was weaned to room air. He will continue with dexamethasone to complete 10 days. Home O2 eval performed with no ongoing supplemental O2 needs. Continue with supportive care. Discussed COVID-19 precautions. Patient is unvaccinated; encouraged him to receive COVID-19 vaccine in 90 days (2) Diabetes mellitus: Code(s): E11.9 - Type 2 diabetes mellitus without complications Status: Acute Assessment and Plan: Noted to have elevated fasting glucose level. A1c elevated at 6.6, consistent with diagnosis of diabetes. He reports he has been informed by his PCP in the past his A1c being elevated. At this time, we will not initiate any treatment and he will follow-up with his PCP for further glucose monitoring. Discussed lifestyle changes including diet and exercise. DS: Summary Hospital Course Hospital Course: Date of admission: 03/12/2021 Date of discharge: 03/17/2021 Daquan Green is a relatively healthy 65-year-old male with no chronic medical conditions who presented to the emergency department on 03/12/2021 with complaints of cough, shortness of breath, and weakness ongoing for 1 week. Upon presentation to the ED, he was febrile with temp 101.1?, additional vital signs stable, H&H slightly decreased, additional CBC and BMP unremarkable, inflammatory markers elevated including LDH, CRP, and slight elevation of AST and ALT. CXR showed a [place] in the bilateral mid and lower lung zones representing pneumonia and CTA showed extensive patchy bilateral ground-glass infiltrates likely related to COVID without evidence of central PE. He was admitted to the hospitalist service for further evaluation and management. Please see above for further details. He was treated for COVID-19 pneumonia with antivirals and steroids. He had significant symptomatic improvement and requested discharge home. Given his overall improvement, he was determined to no longer require inpatient care and was felt to be stable for discharge. We discussed worrisome signs and symptoms for which to return and he was educated on his medications. COVID-19 precautions discussed at length. He was discharged in hemodynamically stable condition on 03/17/2021 and will follow-up with his PCP as an outpatient for further monitoring. Time Spent with Patient Time attestation: Total time spent providing and/or coordinating discharge services: Exam Narrative: Mr. Green is a well-nourished, well-appearing 65-year-old female who is lying supine in bed. He appears comfortable and is in NARD. Neuro: awake, alert and oriented x4, speech clear, no focal neuro deficits noted HEENMT: normocephalic, atraumatic, EOMI, sclerae anicteric, moist oral mucosa Neck: supple, no lymphadenopathy Respiratory: clear to auscultation bilaterally, nonlabored breathing Cardio: regular rate, regular rhythm with S1-S2 Abdomen: nondistended, normoactive bowel sounds, soft, nontender to palpation Extremities: no edema, erythema, or tenderness to palpation Skin: no rashes or lesions, warm and dry Psych: appropriate mood and affect, judgment and insight intact DS: Data Data Completed and Pending Labs on day of discharge: Labs from last 24 hours 03/17/21 03/17/21 03/17/21 06:27 06:27 06:27 PT 13.2 INR 1.0 D-Dimer 1.34 H Sodium 137 Potassium 4.7 Chloride 106 Carbon Dioxide 25 Anion Gap 6 L BUN 14 Creatinine 0.90 Estim Creat Clear Calc 108 Estimated GFR > 60
[2021-03-17] MEDS: REMDESIVIR 100 MG/NS 250 ML 100 MG/250 ML BAG 250 MG IVPB (16:07)
== END 2021-03-17 18:25 | disposition home or self-care (01) | DRG 177 ==
LOC: ANHED 23:43 → ANH3MEDSUR 03-13 05:30
PROVIDERS: Emergency Medicine; Hospitalist; Admitting Provider Internal Medicine; Emergency Provider General Practice; PCP Internal Medicine; Visit Provider Physician Assistant
DX: U07.1 COVID-19 (principal); J12.82 Pneumonia due to coronavirus disease 2019; E11.9 Type 2 diabetes mellitus without complications; H40.9 Unspecified glaucoma; R79.89 Other specified abnormal findings of blood chemistry; Z85.46 Personal history of malignant neoplasm of prostate; Z90.79 Acquired absence of other genital organ(s)
CPT/HCPCS: 36415; 36600; 71046; 71275; 80048; 80053; 80076; 82375; 82565; 82728; 82805; 83036; 83050; 83615; 83735; 84460; 85025; 85380; 85610; 85730; 86140; 93005; 94618; 96365; 96367; 97161; 97165; 99285; A9270; C9113; C9803; J0456; J0696; J1650; J7030; J8540; Q9967; U0003; U0005

== ENCOUNTER 2021-05-24 09:29 | Outpatient (CLI) | payer OTHER, SELFPAY ==
[2021-05-24 10:24] LABS: Hemoglobin A1C 5.7 % (<5.7)
[2021-05-24 10:34] LABS: Anion Gap 7 mmol/L (8-16); Blood Urea Nitrogen 15 mg/dL (9-20); Calcium 9.7 mg/dL (8.4-10.2); Carbon Dioxide 27 mmol/L (22-30); Chloride 106 mmol/L (98-107); Cholesterol 252 mg/dL (0-200); Estimated Glomerular Filt Rate > 60; Glucose 101 mg/dL (65-110); HDL Direct 58 mg/dL; Potassium 3.9 mmol/L (3.4-5.0); Sodium 140 mmol/L (137-145); Triglycerides 103 mg/dL (<150)
[2021-05-24 10:45] LABS: LDL Cholesterol Direct 153 mg/dL
== END 2021-05-24 09:30 | disposition home or self-care (01) ==
LOC: ANHLAB 09:32
PROVIDERS: PCP Internal Medicine; Visit Provider Internal Medicine
DX: E11.9 Type 2 diabetes mellitus without complications (principal)
CPT/HCPCS: 36415; 80048; 80061; 83036

== ENCOUNTER 2022-06-15 14:01 | Outpatient (NON) | payer OTHER, SELFPAY | END 2022-06-15 14:02 | disposition home or self-care (01) | PROVIDERS: PCP Internal Medicine; Visit Provider Nurse Practitioner | DX: L02.212 Cutaneous abscess of back [any part, except buttock and flank] (principal) | CPT/HCPCS: 87070; 87075; 87076; 87205 ==

== ENCOUNTER 2022-09-17 08:00 | Outpatient (NON) | payer OTHER, SELFPAY | END 2022-09-17 08:01 | disposition home or self-care (01) | LOC: ANHLAB 09-18 11:59 | PROVIDERS: PCP Internal Medicine; Visit Provider Nurse Practitioner | DX: L02.212 Cutaneous abscess of back [any part, except buttock and flank] (principal) | CPT/HCPCS: 88305 ==